=== PATIENT | male | born 2000 | race Caucasian/White ===

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

== ENCOUNTER 2022-01-15 11:21 | Emergency (ER) | payer BC, OTHER ==
[2022-01-15] MEDS ORDERED: Ondansetron 4 MG/2 ML SDV IVPUSH PRN (11:36)
[2022-01-15] MEDS ORDERED: Sodium Chloride 0.9% 10 ML Syringe FLUSH PRN (11:37)
[2022-01-15] MEDS ORDERED: Sodium Chloride 0.9% 1,000 ML IV STA (11:37)
[2022-01-15] MEDS ORDERED: Ondansetron 4 MG Tab.DIS PO PRN (12:14)
[2022-01-15] MEDS ORDERED: Acetaminophen 500 MG Tab PO PRN (12:26)
== END 2022-01-15 13:20 | disposition home or self-care (01) ==
LOC: LL.ED 11:21
DX: R11.2 Nausea with vomiting, unspecified (principal); E10.9 Type 1 diabetes mellitus without complications; E66.9 Obesity, unspecified; Z68.30 Body mass index [BMI] 30.0-30.9, adult; Z90.49 Acquired absence of other specified parts of digestive tract
CPT/HCPCS: 96361; 96374; 99283-25; A9270-GY; J2405; J7030